=== PATIENT | female | born 1975 | race Hispanic/Latino ===

== ENCOUNTER 2024-11-03 15:20 | Outpatient (CLI) | payer BC | END 2024-11-03 15:21 | disposition home or self-care (01) | LOC: CSHDTY/OP 15:20 | PROVIDERS: ATTEND Nurse Practitioner Family | DX: Z71.3 Dietary counseling and surveillance (principal); E11.9 Type 2 diabetes mellitus without complications | CPT/HCPCS: 97802 ==